=== PATIENT | female | born 1985 | race Caucasian/White ===

== ENCOUNTER 2017-09-15 13:48 | Emergency (ER) | payer OTHER ==
[~2017-09-15] VITALS: Ht 167.6 cm; Wt 73.5 kg
[2017-09-15 14:45] LABS: BASOPHILS # (AUTO) 0.07 x10^3/uL (0-0.1); BASOPHILS % (AUTO) 1 % (0-1); EOSINOPHILS # (AUTO) 0.09 x10^3/uL (0-0.4); EOSINOPHILS % (AUTO) 1 % (1-7); LYMPHOCYTES # (AUTO) 1.78 x10^3/uL (1-3.4); LYMPHOCYTES % (AUTO) 19 % (22-44); MD NO; MEAN CORPUSCULAR HEMOGLOBIN 29.9 pg (27.0-34.8); MEAN CORPUSCULAR HGB CONC 33.3 g/dL (32.4-35.8); MEAN PLATELET VOLUME 9.1 fL (7.4-10.4); MONOCYTES # (AUTO) 0.56 x10^3/uL (0.2-0.8); MONOCYTES % (AUTO) 6 % (2-9); NEUTROPHILS # (AUTO) 6.84 x10^3/uL (1.8-6.8); NEUTROPHILS % (AUTO) 73 % (42-75); PLATELET COUNT 313 x10^3/uL (130-400); RED BLOOD COUNT 4.95 x10^6/uL (3.82-5.3); RED CELL DISTRIBUTION WIDTH 11.9 % (9.6-15.2)
[2017-09-15 14:47] LABS: MICROSCOPIC AUTO
[2017-09-15 14:54] LABS: CULTURE INDICATED? YES
[2017-09-15 15:39] VITALS: BP 111/84
== END 2017-09-15 16:03 | disposition home or self-care (01) ==
LOC: ED 15:50
DX: O03.88 Urinary tract infection following complete or unspecified spontaneous abortion (principal); O23.11 Infections of bladder in pregnancy, first trimester; O26.891 Other specified pregnancy related conditions, first trimester; R82.99 Other abnormal findings in urine; R31.9 Hematuria, unspecified; Z3A.01 Less than 8 weeks gestation of pregnancy
CPT/HCPCS: 36415; 76801; 81001; 84702; 85025; 86901; 87077; 87086; 87186; 99285

== ENCOUNTER 2018-01-27 12:04 | Emergency (ER) | payer OTHER ==
[~2018-01-27] VITALS: Ht 157.5 cm; Wt 75.0 kg
[2018-01-27 14:06] LABS: MICROSCOPIC INDICATED
[2018-01-27 14:14] LABS: CULTURE INDICATED? NO
[2018-01-27 14:23] LABS: BASOPHILS # (AUTO) 0.03 x10^3/uL (0-0.1); BASOPHILS % (AUTO) 1 % (0-1); EOSINOPHILS # (AUTO) 0.04 x10^3/uL (0-0.4); EOSINOPHILS % (AUTO) 1 % (1-7); LYMPHOCYTES # (AUTO) 1.49 x10^3/uL (1-3.4); LYMPHOCYTES % (AUTO) 20 % (22-44); MD NO; MEAN CORPUSCULAR HEMOGLOBIN 31.3 pg (27.0-34.8); MEAN CORPUSCULAR HGB CONC 34.6 g/dL (32.4-35.8); MEAN CORPUSCULAR VOLUME 90.3 fL (80-100); MEAN PLATELET VOLUME 9.3 fL (7.4-10.4); MONOCYTES # (AUTO) 0.33 x10^3/uL (0.2-0.8); MONOCYTES % (AUTO) 4 % (2-9); NEUTROPHILS # (AUTO) 5.45 x10^3/uL (1.8-6.8); NEUTROPHILS % (AUTO) 74 % (42-75); PLATELET COUNT 287 x10^3/uL (130-400); RED BLOOD COUNT 4.59 x10^6/uL (3.82-5.3); RED CELL DISTRIBUTION WIDTH 12.5 % (9.6-15.2)
[2018-01-27 15:22] VITALS: BP 116/71
== END 2018-01-27 15:25 | disposition home or self-care (01) ==
LOC: ED 15:20
DX: O00.90 Unspecified ectopic pregnancy without intrauterine pregnancy (principal); O26.891 Other specified pregnancy related conditions, first trimester; Z32.01 Encounter for pregnancy test, result positive
CPT/HCPCS: 36415; 76801; 81001; 84702; 85025; 93005; 99285

== ENCOUNTER 2018-02-22 20:00 | Emergency (ER) | payer OTHER ==
[2018-02-22 20:02] VITALS: BP 145/96
[2018-02-22] MEDS ORDERED: PRENATAL (20:05)
[2018-02-22] MEDS ORDERED: [UNRECOGNIZED DRUG - CODE] (20:05)
[2018-02-22 21:06] LABS: BASOPHILS # (AUTO) 0.06 x10^3/uL (0-0.1); BASOPHILS % (AUTO) 1 % (0-1); EOSINOPHILS # (AUTO) 0.13 x10^3/uL (0-0.4); EOSINOPHILS % (AUTO) 2 % (1-7); LYMPHOCYTES # (AUTO) 2.11 x10^3/uL (1-3.4); LYMPHOCYTES % (AUTO) 24 % (22-44); MD NO; MEAN CORPUSCULAR HEMOGLOBIN 31.2 pg (27.0-34.8); MEAN CORPUSCULAR HGB CONC 34.6 g/dL (32.4-35.8); MEAN CORPUSCULAR VOLUME 90.3 fL (80-100); MEAN PLATELET VOLUME 8.6 fL (7.4-10.4); MONOCYTES # (AUTO) 0.51 x10^3/uL (0.2-0.8); MONOCYTES % (AUTO) 6 % (2-9); NEUTROPHILS # (AUTO) 6.19 x10^3/uL (1.8-6.8); NEUTROPHILS % (AUTO) 69 % (42-75); PLATELET COUNT 279 x10^3/uL (130-400); RED BLOOD COUNT 4.13 x10^6/uL (3.82-5.3); RED CELL DISTRIBUTION WIDTH 12.6 % (9.6-15.2)
[2018-02-22 21:16] LABS: ALBUMIN 3.4 g/dL (3.4-5.0); ANION GAP 6 mmol/L (5-15); CALCIUM 8.6 mg/dL (8.5-10.1); CHLORIDE 108 mmol/L (98-107); CREATININE 0.65 mg/dL (0.55-1.02)
== END 2018-02-23 01:43 | disposition home or self-care (01) ==
LOC: ED 21:25
DX: O20.0 Threatened abortion (principal); Z3A.09 9 weeks gestation of pregnancy
CPT/HCPCS: 36415; 76801; 80048; 82040; 84702; 85025; 99285

== ENCOUNTER 2018-02-26 15:02 | Day surgery (SDC) | payer OTHER ==
[~2018-02-26] VITALS: Ht 170.2 cm; Wt 78.4 kg
[~2018-02-26 15:02] MED LIST: PRENATAL; [UNRECOGNIZED DRUG - CODE]
[2018-02-26] MEDS ORDERED: LACTATED RINGERS 1,000 ML IV SCH (15:32)
[2018-02-26 15:43] VITALS: BP 137/84
[2018-02-26] MEDS ORDERED: MIDAZOLAM 1 MG/ML, 2ML ONE (16:06)
[2018-02-26 16:07] LABS: BASOPHILS # (AUTO) 0.09 x10^3/uL (0-0.1); BASOPHILS % (AUTO) 1 % (0-1); EOSINOPHILS # (AUTO) 0.08 x10^3/uL (0-0.4); EOSINOPHILS % (AUTO) 1 % (1-7); LYMPHOCYTES # (AUTO) 1.67 x10^3/uL (1-3.4); LYMPHOCYTES % (AUTO) 11 % (22-44); MD NO; MEAN CORPUSCULAR HEMOGLOBIN 31.2 pg (27.0-34.8); MEAN CORPUSCULAR HGB CONC 34.9 g/dL (32.4-35.8); MEAN CORPUSCULAR VOLUME 89.3 fL (80-100); MEAN PLATELET VOLUME 8.9 fL (7.4-10.4); MONOCYTES # (AUTO) 0.64 x10^3/uL (0.2-0.8); MONOCYTES % (AUTO) 4 % (2-9); NEUTROPHILS # (AUTO) 12.39 x10^3/uL (1.8-6.8); NEUTROPHILS % (AUTO) 83 % (42-75); PLATELET COUNT 299 x10^3/uL (130-400); RED BLOOD COUNT 4.47 x10^6/uL (3.82-5.3); RED CELL DISTRIBUTION WIDTH 12.2 % (9.6-15.2)
[2018-02-26] MEDS ORDERED: FENTANYL PF 250 MCG/5ML ONE (16:07)
[2018-02-26] MEDS ORDERED: DEXAMETHASONE 4 MG/ML, 1ML ONE ×2 (16:07)
[2018-02-26] MEDS ORDERED: PROPOFOL 10 MG/ML, 20ML ONE (16:08)
[2018-02-26] MEDS ORDERED: ONDANSETRON 2MG/ML, 2ML ONE ×2 (16:08)
[2018-02-26] MEDS ORDERED: OXYTOCIN 10 UNITS/ML, 1ML ONE (16:15)
[2018-02-26] MEDS ORDERED: MISOPROSTOL 200 MCG TABLET ONE (16:15)
[2018-02-26] MEDS ORDERED: METHYLERGONOVINE 0.2 MG/ML IM ONE (16:15)
[2018-02-26] MEDS ORDERED: ONDANSETRON ODT 8 MG PO PRN (16:30)
[2018-02-26] MEDS ORDERED: LABETALOL 5MG/ML, 20ML IV PRN (16:30)
[2018-02-26] MEDS ORDERED: MORPHINE SULFATE 4 MG/ML, 1ML IVPush PRN (16:30)
[2018-02-26] MEDS ORDERED: PROMETHAZINE 12.5 MG SUPP PR PRN ×2 (16:30→19:00)
[2018-02-26] MEDS ORDERED: HYDROmorphone 1 MG/ML, 1ML IV PRN (16:30)
[2018-02-26] MEDS ORDERED: PROMETHAZINE 25 MG/ML, 1ML IV PRN (16:30)
[2018-02-26] MEDS ORDERED: OXYcodone 5 MG/5 ML ORAL.SOL UDC PO PRN ×2 (16:30→18:30)
[2018-02-26] MEDS ORDERED: PROMETHAZINE 25 MG SUPP PR PRN (16:30)
[2018-02-26] MEDS ORDERED: hydrALAzine 20 MG/ML, 1ML IV PRN (16:30)
[2018-02-26] MEDS ORDERED: ACETAMINOPHEN 325 MG TABLET PO PRN (16:30)
[2018-02-26] MEDS ORDERED: FENTANYL PF 100 MCG/2ML IV PRN (16:30)
[2018-02-26] MEDS ORDERED: MEPERIDINE/PF 25MG/0.5ML IVPush PRN (16:30)
[2018-02-26] MEDS ORDERED: ONDANSETRON 2MG/ML, 2ML IV PRN ×2 (16:30→18:30)
[2018-02-26] MEDS ORDERED: KETOROLAC 30 MG/1 ML ONE (16:49)
[2018-02-26] MEDS ORDERED: SILVER NITRATE STICK TP ONE (16:59)
[2018-02-26] MEDS ORDERED: OXYcodone 5 MG/5 ML ORAL.SOL UDC ONE (17:23)
[2018-02-26] MEDS ORDERED: ACETAMINOPHEN 650 MG/20.3 ML UDC ONE (17:23)
[2018-02-26] MEDS ORDERED: ONDANSETRON ODT 4 MG PO PRN (18:30)
[2018-02-26] MEDS ORDERED: morphine SULFATE 10 MG/ML, 1ML IV PRN (18:30)
[2018-02-26] MEDS ORDERED: PROMETHAZINE 25 MG SUPP PR ONE (19:10)
== END 2018-02-26 21:05 | disposition home or self-care (01) ==
LOC: OUT 15:02 → 4NOR 17:55 → OUT 21:05
PROVIDERS: ATTEND Obstetrics & Gynecology Gynecology
DX: O02.1 Missed abortion (principal); Z98.890 Other specified postprocedural states; Z90.49 Acquired absence of other specified parts of digestive tract; Z3A.09 9 weeks gestation of pregnancy; Z79.899 Other long term (current) drug therapy
CPT/HCPCS: 36415; 59820; 85025; 86850; 86900; 88305; J1100; J1885; J2250; J2405; J2704; J3010; J7120; Q0162; J2210; J2590